=== PATIENT | male | born 1970 | race Caucasian/White ===

== ENCOUNTER 2016-11-28 14:03 | Emergency (ER) | payer SELFPAY ==
[~2016-11-28] VITALS: Ht 193 cm; Wt 84.1 kg
[2016-11-28 14:05] VITALS: PULSE 51; RESP 22; O2SAT 100
[2016-11-28] MEDS ORDERED: Alum-Mag Hydrox-Simeth 30 mL Suspension ONE (14:12)
[2016-11-28] MEDS ORDERED: diphenhydrAMINE 2.5 mg/mL 5 mL Syrup ONE (14:12)
--- NOTE | 2016-11-28 14:40 | ED.REPORT ---
HPI-Abd Pain M 40 and Over Date of Service Nov 28, 2016 ED Provider: The patient is a 46 year old male who presents to the emergency department complaining of severe upper abdominal pain that started earlier today. He states , "it felt like my stomach was being cramped down." His symptoms have worsened since onset. He has also experienced nausea, vomiting, and diaphoresis. His pain has remained constant since onset. He has had similar symptoms in the past. He has previously tried over the counter antacids with minimal relief. He has loose stools chronically. He also mentions a sore over his right wrist that he first noticed a few days ago. Over the next day the area swelled and had a "white core." He has soaked the area in Epson salt and the sore is improved today. Nursing Notes Stated Complaint: ABDOMINAL PAIN Chief Complaint: Male Abdominal Pain Nursing Notes Reviewed: Yes Allergies: Coded Allergies: No Known Allergies (Unverified , 11/28/16) General Time Seen by MD: 14:39 Chief Complaint Abdominal pain Hx Obtained From: Patient Arrived By: Walk-in Sudden in Onset?: Yes Onset Occurred: 5 - 8 hours ago Symptom Duration: Since onset Progression since Onset: Constant Location: : Abdomen upper Quality: Painful Severity: Current: Severe Severity: Maximum: Severe Recent Healthcare: No recent doctor visit, No recent hospitalization Similar Sx Previous: Yes Past Medical History Past Medical History GERD Past Surgical History Stomach polyp removal Family History Noncontributory Smoking History Current Every Day Smoker Social History Other Social History: Good social support, , Local resident Ambulatory Status Independent Review of Systems Review of Systems Note: +sores GI: Reports: Abdominal pain, Diarrhea (chronically), Nausea, Vomiting Complete sys rev & neg: except as marked. Skin: Reports Diaphoresis Physical Exam Initial Vital Signs Vital Signs (First) Date Time Temp Pulse Resp B/P Pulse Ox O2 Delivery O2 Flow Rate FiO2 11/28/16 14:05 36.1 51 22 100 Room Air Initial VS: Reviewed Head / Eyes: Atraumatic, Normocephalic, PERRL ENT: Mucous membranes moist, Conjunctiva normal, No scleral icterus Neck: Supple, Non-tender, Full range of motion Lymphatic: No lymphadenopathy Extremities: Vascular intact, Neuro intact, No swelling, No tenderness Neurologic: Alert, Oriented, Nonfocal Psychiatric: Mood/affect normal, Behavior normal, Normal thought content General/Constitutional: Awake, Alert, Cooperative Respiratory / Chest: Atraumatic, Breath sounds NL, Breath sounds = bilat, No respiratory distress, No rales, No rhonchi, No wheezing Cardiovascular: Heart rate NL, Regular rhythm, Heart sounds NL, No gallop, No murmurs, No rubs, Peripheral circulation NL Abdomen: Atraumatic, Soft, Non-tender, McBurney's non-tender, No guarding, No rebound, BS normoactive, No distention, No hernia, No palpable mass, No pulsatile mass Back: Atraumatic, Inspection NL, Full range of motion, Non-tender, No midline vertebral tend Skin: Warm, Dry Rash / Lesion Notes: There is scattered erythematous papules to his head and arms, probably about 3-4 lesions Wrist / Hand: Neurologic intact, Vascular intact There is a wound on the dorsal aspect of the right wrist, looks like a healing cellulitis Interpretation & Diagnostics Lab Results Interpretation Result Diagram: 11/28/16 1445 Test 11/28/16 14:45 White Blood Count 14.5th/mm3 (3.8-10.1) Red Blood Count 4.88mil/mm3 (4.40-5.80) Hemoglobin 14.1g/dL (13.8-17.2) Hematocrit 42.3% (41.0-50.0) Mean Corpuscular Volume 86.7fL (81-100) Mean Corpuscular Hemoglobin 28.9pg (27.0-35.0) Mean Corpuscular Hemoglobin Concent 33.3% (32.0-37.0) Red Cell Distribution Width 12.8% (12.3-15.4) Platelet Count 415bil/L (150-400) Neutrophils (%) (Auto) 82.5% (40-74) Lymphocytes (%) (Auto) 9.6% (14-46) Monocytes (%) (Auto) 6.7% (4-12) Eosinophils (%) (Auto) 0.7% (0-5) Basophils (%) (Auto) 0.4% (0-3) Re-Eval/Medical Decision Source of Hx: Old records Time of Eval: 15:23 Re-Evaluation/Progress Note: His pain improved with a GI cocktail. Discussed plan for discharge. All questions were addressed. Counseled Regarding: Diagnosis, Lab results, Need for follow-up, When/why to return to ED Discharge & Departure Primary Impression: Upper abdominal pain Additional Impression: Cellulitis Site of cellulitis: extremity Site of cellulitis of extremity: upper extremity Laterality: right Qualified Code: L03.113 - Cellulitis of right upper limb Disposition: Home Vital Signs - All Vital Signs Date Time Temp Pulse Resp B/P Pulse Ox O2 Delivery O2 Flow Rate FiO2 11/28/16 14:05 36.1 51 22 100 Room Air )( All Prior VS Reviewed: Yes Condition: Stable Patient Instructions: Acute Abdominal Pain (ED), Cellulitis (ED), Gastroesophageal Reflux Disease (ED) Additional Instructions: Thank you for entrusting us with your care today. I am glad you are feeling better. I have written you a prescription for viscous lidocaine gel. You can take this with over the counter Maalox if you develop recurrent symptoms. I have also written you a prescription for Bactrim (antibiotic) for the wound on your hand and the smaller lesions on your skin elsewhere. I recommend establishing care with a primary doctor in the area. We have given you a referral to Dr. Goldstein. You should also followup with a enterprise resource planning consultant. We have given you a referral to Dr. Ogden. Please return to the emergency department for any new or concerning symptoms. Referrals: Almaz Goldstein PA-C, David B MD Scribe Attestation Portions of this note were transcribed by Emily Hatch. I, Dr. Betts personally performed the history, physical exam and medical decision-making; I reviewed and confirmed the accuracy of the information in the transcribed note. Signed by: Lianna Brown, 11/28/2016 at 1545. copies to: Almaz Goldstein PA-C; Piter Ogden MD, Kirk H MD Nov 28, 2016 14:40 Emily Hatch Nov 28, 2016 14:49
[2016-11-28 14:58] LABS: BASOPHILS % (AUTO) 0.4 % (0-3); EOSINOPHILS % (AUTO) 0.7 % (0-5); MONOCYTES % (AUTO) 6.7 % (4-12); Mean Corpuscular Hemoglobin 28.9 pg (27.0-35.0); Mean Corpuscular Volume 86.7 fL (81-100); NEUTROPHILS % (AUTO) 82.5 % (40-74); Platelet Count 415 bil/L (150-400)
[2016-11-28] MEDS ORDERED: SULF1TAB7 PO (16:01)
[2016-11-28] MEDS ORDERED: LIDO20SO MM (16:01)
== END 2016-11-28 16:34 | disposition home or self-care (01) ==
LOC: SED 14:03
DX: R10.10 Upper abdominal pain, unspecified (principal); L03.113 Cellulitis of right upper limb; R11.2 Nausea with vomiting, unspecified; R61 Generalized hyperhidrosis; K21.9 Gastro-esophageal reflux disease without esophagitis; F17.200 Nicotine dependence, unspecified, uncomplicated